=== PATIENT | female | born 1940 | race Caucasian/White ===

== ENCOUNTER 2017-02-05 07:20 | Day surgery (SDC) | payer MEDICARE, OTHER ==
[~2017-02-05] VITALS: Ht 162.6 cm; Wt 49.9 kg
[~2017-02-05 07:20] MED LIST: CALC-786 PO; CALC-952 PO; FERR325C PO; LUTE20TA PO; MULT-666 PO
[2017-02-05 07:45] VITALS: BP 138/86; PULSE 73; RESP 16; O2SAT 99
[2017-02-05] MEDS ORDERED: Sodium Chloride LOK Flush 10 mL Syringe IV PRN (07:45)
[2017-02-05] MEDS ORDERED: fentaNYL-PF 50 mCg/mL 2 mL Inj IVPUSH PRN (07:45)
[2017-02-05] MEDS ORDERED: ALEN70TA2 PO (07:48)
[2017-02-05] MEDS: 0.9% Sodium Chloride 1,000 ML IV PRN ×2 (07:53→09:07)
[2017-02-05 09:16] VITALS: BP 108/66; PULSE 62; RESP 16; O2SAT 92
--- NOTE | 2017-02-05 09:21 | PCM.ENDCOL ---
Colonoscopy Date of Service: February 05, 2017 Physician Jun Gonzalez MD Pre Procedure Diagnosis: screening colon and family history of colon cancer Post Procedure Dx & Findings: avm polyp hemmorhoids Procedure Colonoscopy PROCEDURE IN DETAIL: Prep adequate Withdrawal time 12 minutes After unremarkable rectal examination the Olympus video colonoscope was inserted patient's anal canal and was advanced to cecum. Landmarks were identified including the ileocecal valve and appendiceal orifice. Scope was withdrawn systematically. Visualized colonic mucosa showed healthy shiny mucosa with normal healthy-appearing vasculature. In the cecum, there was a 1-1/2 cm AVM. No bleeding. In the descending colon, there was a 2-3 mm polyp which was removed completely using cold snare. In the rectum, there was a 2 mm whitish nodule which was biopsied. In the rectum retroflexion was done which showed hemorrhoids. Anal canal was inspected carefully on the way out and hemorrhoids noted. Impression Polyp 1 status post complete removal AVM 2 mm whitish nodule in the rectum Hemorrhoids Recommendation Repeat colonoscopy in 5 years Presedation Assessment Risks and Benefits Informed consent was obtained from the patient after all risks and benefits including but not limited to drug reaction, infection, pain, bleeding, perforation, as well as alternatives were discussed. Patient monitoring Continuous pulse oximetry, cardiac monitoring, blood pressure monitoring, IV access, and oxygen at 2L per nasal cannula. Periprocedural Fentanyl: Fentanyl 50mcg Incrementally Midazolam: Midazolam 3mg Incrementally Complications There were no periprocedural complications identified. Post Procedure Plan Post Procedure Recommendations 1. Restrict activities today. 2. Resume normal activities in the morning. 3. Resume medications. 4. Patient informed of normal post procedure side effects as bloating, drowsiness, blood streaking in the stool. 5. average risk CRCS. If colon polyps come back as: -Hyperplastic- can repeat colonoscopy in 10 years -Tubular adenoma- repeat colonoscopy in 5 years -Tubulovillous/villous adenoma- repeat colonoscopy in 3 years -If any dysplasia- return to clinic as soon as possible 6. Please don't hesitate to call me with any questions. Jun Gonzalez MD February 05, 2017 09:21
[2017-02-05 09:26] VITALS: BP 99/62; PULSE 59; RESP 14; O2SAT 100
[2017-02-05 09:37] VITALS: BP 115/73; PULSE 58; RESP 15; O2SAT 93
--- NOTE | 2017-02-08 19:26 | PATH ---
SURGICAL PATHOLOGY Attending Physician:Jun Gonzalez M.D. CASE STATUS: Signed Out PATIENT NAME: CECY ALONSO PID: [id number] : 1940 DATE COLLECTED:02/05/2017 18:17 SPECIMEN: 1: Colon, Biopsy 2: Rectum, Biopsy CLINICAL HISTORY: 1). DESCENDING COLON POLYP 2). RECTAL BIOPSY OF 2MM WHITEISH NODULE FINAL DIAGNOSIS: 1. Descending Colon Polyp, Biopsy: Portion of tubular adenoma x 1; negative for high-grade dysplasia. Portion of colorectal mucosa x 1 with scattered lymphoid aggregates and no diagnostic abnormality. 2. Rectum, Biopsy: Superficial portion of colorectal mucosa with scattered aggregates of histiocytes within the lamina propria, consistent with xanthoma. Negative for dysplasia and neoplasia. ICD10: K63.5 GROSS DESCRIPTION: The specimen is received in two formalin filled containers labeled with the patient's name. 1). The specimen is sublabeled "descending colon polyp" and consists of 2 portions of tissue which aggregate to 0.7 x 0.4 x 0.2 CM. The specimen is entirely submitted in cassette 1A. 2). The specimen is sublabeled "rectal" and consists of a 0.2 x 0.2 x 0.2 CM portion of tissue which is entirely submitted in cassette 2A. 02/05/2017 [facility] ICD-9 CODES: CPT CODES: 1: 87295 2: 18609 Electronically Signed Out Amrita Ott MD [facility], [place] [address] Technical component performed at [facility], [address] [place] [address] Ave[address], [address]
== END 2017-02-05 23:59 | disposition home or self-care (01) ==
LOC: END 07:20
PROVIDERS: ATTEND Internal Medicine
DX: Z12.11 Encounter for screening for malignant neoplasm of colon (principal); D12.4 Benign neoplasm of descending colon; K64.8 Other hemorrhoids; K62.1 Rectal polyp; Q27.33 Arteriovenous malformation of digestive system vessel; Z80.0 Family history of malignant neoplasm of digestive organs; M81.0 Age-related osteoporosis without current pathological fracture
CPT/HCPCS: 45380; 45385; G0500; J2250; J3010; J7030